=== PATIENT | female | born 1965 | race American Indian/Alaskan Native ===

== ENCOUNTER 2018-03-01 20:20 | Emergency (ER) | payer OTHER ==
[2018-03-01] MEDS ORDERED: TYLENOL ONE (22:00)
[2018-03-01] MEDS ORDERED: TYLENOL PO ONE (22:01)
--- NOTE | 2018-03-02 00:11 | XRay Report ---
FINAL REPORT EXAM: XR SPINE CERVICAL 2-3V HISTORY: neck pain TECHNIQUE: Four views of the cervical spine were submitted. FINDINGS: There is [id number] narrowing of the C5-C6 and C6-C7 disc with endplate spurring. The upper cervical discs are normal height. The alignment appears normal. There is no evidence of fracture. The prevertebral soft tissues and C1-C2 articulation appear intact. IMPRESSION: Degenerative arthritic changes of the C5-C6 and C6-C7 levels. No acute injury.
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
[2018-03-02 02:41] VITALS: BP 159/94
== END 2018-03-02 03:42 | disposition home or self-care (01) ==
LOC: ED 20:20
DX: S16.1XXA Strain of muscle, fascia and tendon at neck level, initial encounter (principal); M50.30 Other cervical disc degeneration, unspecified cervical region; R51 Headache; V49.49XA Driver injured in collision with other motor vehicles in traffic accident, initial encounter; Y93.89 Activity, other specified; Y92.89 Other specified places as the place of occurrence of the external cause; Y99.8 Other external cause status
CPT/HCPCS: 72040